=== PATIENT | female | born 1965 | race Caucasian/White ===

== ENCOUNTER 2016-10-05 10:08 | Outpatient (CLI) | payer BC | END 2016-10-05 10:09 | disposition home or self-care (01) | DX: M25.512 Pain in left shoulder (principal) ==

== ENCOUNTER 2017-06-08 08:00 | Outpatient (CLI) | payer BC ==
[2017-06-09 13:46] LABS: HEMOGLOBIN A1C 0.46 g/dL
[2017-06-09 13:56] LABS: THYROID STIMULATING HORMONE 4.87 uIU/mL (0.34-5.60)
== END 2017-06-08 08:01 | disposition home or self-care (01) ==
LOC: LAB.F 08:00
PROVIDERS: ATTEND Registered Nurse
DX: F31.31 Bipolar disorder, current episode depressed, mild (principal)
CPT/HCPCS: 36415; 83036; 84439; 84443; 84481

== ENCOUNTER 2017-06-11 10:16 | Outpatient (CLI) | payer BC ==
--- NOTE | 2017-06-16 13:28 | Mammography Report ---
DATE OF SERVICE: 06/11/2017 DIGITAL SCREENING MAMMOGRAM: 06/11/2017 CLINICAL INDICATION: A 51-year-old with history of late childbearing, history of bilateral reduction for screening. COMPARISON: 05/2015, 07/2013, 01/2012, 01/2011, 11/2009. TECHNIQUE: Routine CC and MLO projections were obtained of the breasts. FINDINGS: The breasts again demonstrate scattered fibroglandular densities bilaterally. Post-reduct ion changes are stable. Coarse and punctate, typically benign calcifications are present. No suspicious masses, clustered microcalcifications, or regions of architectural distortion are identified. IMPRESSION: Benign findings. RECOMMENDATIONS: Routine annual screening unless otherwise clinically indicated. BIRADS category 2 - Benign findings. STANDARD QUALIFYING STATEMENTS 1. This examination was reviewed with the aid of Computed-Aided Detection (CAD). 2. A negative or benign imaging report should not delay biopsy if clinically suspicious findings are present. Consider surgical consultation if warranted. More than 5% of cancers are not identified by imaging. 3. Dense breasts may obscure an underlying neoplasm. TD: 06/15/2017 19:36
== END 2017-06-11 10:17 | disposition home or self-care (01) ==
LOC: DI.S 10:16
PROVIDERS: ATTEND Physician Assistant
DX: Z12.39 Encounter for other screening for malignant neoplasm of breast (principal)
CPT/HCPCS: 77067

== ENCOUNTER 2017-07-13 14:35 | Outpatient (CLI) | payer OTHER ==
[2017-07-13 17:23] LABS: BASOPHILS # (AUTO) 0.1 10^3/uL (0.0-0.1); BASOPHILS % (AUTO) 1.1 %; EOSINOPHILS % (AUTO) 14.8 %; HGB - HEMOGLOBIN 13.8 g/dL (12.0-16.0); LYMPHOCYTES # (AUTO) 2.3 10^3/uL (1.5-3.5); LYMPHOCYTES % (AUTO) 33.3 %; MEAN CORPUSCULAR HEMOGLOBIN 31.6 pg (27.0-31.0); MEAN CORPUSCULAR HGB CONC 32.6 g/dL (32.0-36.0); MEAN CORPUSCULAR VOLUME 96.7 fL (81.0-99.0); MEAN PLATELET VOLUME 8.7 fL (7.9-10.8); MONOCYTES # (AUTO) 0.7 10^3/uL (0.0-1.0); MONOCYTES % (AUTO) 9.6 %; NEUTROPHILS # (AUTO) 2.8 10^3/uL (1.5-6.6); NEUTROPHILS % (AUTO) 41.2 %; PLT - PLATELET COUNT 310 10^3/uL (130-450); RED BLOOD COUNT 4.37 10^6/uL (4.20-5.40); WHITE BLOOD COUNT 6.8 x10^3/uL (4.8-10.8)
[2017-07-13 18:57] LABS: THYROID STIMULATING HORMONE 2.84 uIU/mL (0.34-5.60)
[2017-07-13 18:59] LABS: FREE T4 (FREE THYROXINE) 0.75 ng/dL (0.58-1.64)
[2017-07-13 19:00] LABS: FERRITIN 18.3 ng/mL (11.0-306.8)
== END 2017-07-13 14:36 | disposition home or self-care (01) ==
LOC: LAB.F 14:35
PROVIDERS: ATTEND Registered Nurse
DX: F31.31 Bipolar disorder, current episode depressed, mild (principal)
CPT/HCPCS: 36415; 82728; 84439; 84443; 84481; 85025; 86376; 86800

== ENCOUNTER 2017-09-23 08:00 | Outpatient (CLI) | payer OTHER | END 2017-09-23 08:01 | disposition home or self-care (01) | LOC: LAB.F 08:00 | PROVIDERS: ATTEND Registered Nurse | DX: F31.74 Bipolar disorder, in full remission, most recent episode manic (principal) | CPT/HCPCS: 36415; 84443 ==

== ENCOUNTER 2017-11-24 10:39 | Outpatient (CLI) | payer OTHER ==
[2017-11-24 18:22] LABS: CHOL/HDL RATIO 5.1 (<4.4); CHOLESTEROL 216 mg/dL; HDL CHOLESTEROL 42 mg/dL; LDL CHOLESTEROL,CALCULATED 151 mg/dL; LDL/HDL RATIO 3.6 (<4.4); VLDL CHOLESTEROL 23 mg/dL
== END 2017-11-24 10:40 | disposition home or self-care (01) ==
LOC: LAB.F 10:39
PROVIDERS: ATTEND Physician Assistant
DX: E78.5 Hyperlipidemia, unspecified (principal); F31.74 Bipolar disorder, in full remission, most recent episode manic
CPT/HCPCS: 36415; 80061; 81599; 82542; 83721; 84443

== ENCOUNTER 2018-04-05 14:52 | Outpatient (CLI) | payer OTHER | END 2018-04-05 14:53 | disposition home or self-care (01) | LOC: SC 14:52 | PROVIDERS: ATTEND Internal Medicine Pulmonary Disease | DX: G47.10 Hypersomnia, unspecified (principal); R41.89 Other symptoms and signs involving cognitive functions and awareness; R06.83 Snoring | CPT/HCPCS: 99203; 99212 ==

== ENCOUNTER 2018-05-27 20:39 | Outpatient (CLI) | payer OTHER | END 2018-05-27 20:40 | disposition home or self-care (01) | LOC: SC 20:39 | PROVIDERS: ATTEND Internal Medicine Pulmonary Disease | DX: R06.83 Snoring (principal); G47.10 Hypersomnia, unspecified | CPT/HCPCS: 95810 ==

== ENCOUNTER 2018-07-06 16:18 | Outpatient (CLI) | payer OTHER | END 2018-07-06 16:19 | disposition home or self-care (01) | LOC: SC 16:18 | PROVIDERS: ATTEND Nurse Practitioner Family | DX: R06.83 Snoring (principal); R53.83 Other fatigue; G47.00 Insomnia, unspecified | CPT/HCPCS: 99212; 99215 ==

== ENCOUNTER 2018-08-26 14:43 | Outpatient (CLI) | payer OTHER | END 2018-08-26 14:44 | disposition home or self-care (01) | LOC: LAB.F 14:43 | PROVIDERS: ATTEND Registered Nurse | DX: F31.75 Bipolar disorder, in partial remission, most recent episode depressed (principal) | CPT/HCPCS: 36415; 80178; 84443 ==

== ENCOUNTER 2020-09-15 12:37 | Outpatient (CLI) | payer OTHER ==
--- NOTE | 2020-09-17 11:40 | Mammography Report ---
BILATERAL DIGITAL SCREENING MAMMOGRAM 3D/2D: 09/15/2020 CLINICAL: Routine screening. Comparison is made to exams dated: 06/11/2017 mammogram, 06/05/2015 mammogram, 08/17/2013 mammogram, 02/17/2012 mammogram, 02/17/2011 mammogram, and 12/17/2009 mammogram - [facility]. Th ere are scattered fibroglandular elements in both breasts. No significant masses, calcifications, or other findings are seen in either breast. There has been no significant interval change. IMPRESSION: NEGATIVE There is no mammographic evidence of malignancy. A 1 year screening mammogram is recommended. This exam was interpreted at Station ID: [id number]. NOTE: For mammograms, a report in lay terms will be sent to the patient. Approximately 15% of breast malignancies will not be visualized mammographically. In the management of a palpable breast mass, a negative mammogram must not discourage biopsy of a clinically suspicious lesion. Electronically Signed By: Reese Atkinson M.D. ddp/penrad:09/16/2020 12:46:26 ACR BI-RADS Category 1: Negative 3341F PARENCHYMAL PATTERN: (A) - The breast(s) demonstrate(s) scattered fibroglandular densities. BI-RADS CATEGORY: (1) - 1 RECOMMENDATION: (ANNUAL) - Recommend routine annual screening mammography. [id number] 1 year screening LATERALITY: (B)
== END 2020-09-15 12:38 | disposition home or self-care (01) ==
LOC: DI.S 12:37
PROVIDERS: ATTEND Registered Nurse
DX: Z12.31 Encounter for screening mammogram for malignant neoplasm of breast (principal)

== ENCOUNTER 2021-04-02 09:34 | Outpatient (CLI) | payer OTHER ==
[2021-04-02 14:59] LABS: BASOPHILS # (AUTO) 0.1 10^3/uL (0.0-0.1); BASOPHILS % (AUTO) 1.7 %; EOSINOPHILS # (AUTO) 0.7 10^3/uL (0.0-0.7); EOSINOPHILS % (AUTO) 11.6 %; HCT - HEMATOCRIT 44.8 % (37.0-47.0); HGB - HEMOGLOBIN 14.5 g/dL (12.0-16.0); LYMPHOCYTES # (AUTO) 2.2 10^3/uL (1.5-3.5); LYMPHOCYTES % (AUTO) 36.9 %; MEAN CORPUSCULAR HEMOGLOBIN 31.5 pg (27.0-31.0); MEAN CORPUSCULAR HGB CONC 32.4 g/dL (32.0-36.0); MEAN CORPUSCULAR VOLUME 97.4 fL (81.0-99.0); MEAN PLATELET VOLUME 10.4 fL (7.9-10.8); MONOCYTES # (AUTO) 0.6 10^3/uL (0.0-1.0); MONOCYTES % (AUTO) 9.7 %; NEUTROPHILS # (AUTO) 2.3 10^3/uL (1.5-6.6); NEUTROPHILS % (AUTO) 39.9 %; PLT - PLATELET COUNT 306 10^3/uL (130-450); RED CELL DISTRIBUTION WIDTH 12.8 % (12.0-15.0); WHITE BLOOD COUNT 5.9 x10^3/uL (4.8-10.8)
[2021-04-02 15:41] LABS: ALBUMIN 4.4 g/dL (3.2-5.5); ALBUMIN/GLOBULIN RATIO 1.4 (1.0-2.2); ALKALINE PHOSPHATASE 69 IU/L (42-121); ALT ALANINE AMINOTRANSFERASE 22 IU/L (10-60); AST ASPARTATE AMINOTRANSFERASE 19 IU/L (10-42); BUN - BLOOD UREA NITROGEN 11 mg/dL (6-20); CALCIUM 9.6 mg/dL (8.5-10.3); CARBON DIOXIDE - CO2 26 mmol/L (21-32); CHLORIDE 103 mmol/L (101-111); CHOL/HDL RATIO 5.7 (<4.4); CHOLESTEROL 320 mg/dL; CREATININE 0.9 mg/dL (0.4-1.0); GFR - MDRD 65 (>89); GLUCOSE 103 mg/dL (70-100); HDL CHOLESTEROL 56 mg/dL; LDL CHOLESTEROL,CALCULATED 239 mg/dL; LDL/HDL RATIO 4.3 (<4.4); LITHIUM 0.69 mmol/L; POTASSIUM 4.4 mmol/L (3.5-5.0); SODIUM 137 mmol/L (135-145); TOTAL PROTEIN 7.5 g/dL (6.7-8.2); TRIGLYCERIDES 125 mg/dL; VLDL CHOLESTEROL 25 mg/dL
[2021-04-02 15:53] LABS: THYROID STIMULATING HORMONE 2.19 uIU/mL (0.34-5.60)
[2021-04-02 15:55] LABS: FREE T3 2.93 pg/mL (2.5-3.9); FREE T4 (FREE THYROXINE) 0.83 ng/dL (0.58-1.64)
[2021-04-02 20:22] LABS: ESTIMATED AVERAGE GLUCOSE 111 mg/dL (70-100); HEMOGLOBIN A1c% 5.5 % (4.27-6.07)
== END 2021-04-02 09:35 | disposition home or self-care (01) ==
LOC: LAB.S 09:34
PROVIDERS: ATTEND Registered Nurse
DX: F31.75 Bipolar disorder, in partial remission, most recent episode depressed (principal)
CPT/HCPCS: 36415; 80053; 80061; 80178; 83036; 83721; 84439; 84443; 84481; 85025

== ENCOUNTER 2021-05-29 08:00 | Outpatient (CLI) | payer OTHER ==
--- NOTE | 2021-05-29 16:43 | XRAY Report ---
PROCEDURE: Elbow 3 View RT INDICATIONS: CONTUSION OF RIGHT ELBOW TECHNIQUE: 3 views of the elbow were acquired. COMPARISON: None. FINDINGS: Bones: No fractures or dislocations. No suspicious bony lesions. Soft tissues: No elbow joint effusion. No suspicious soft tissue calcifications. IMPRESSION: 1. No fracture or dislocation. Reviewed by: Reese Atkinson MD on 05/29/2021 3:42 PM [facility] Approved by: Reese Atkinson MD on 05/29/2021 3:42 PM [facility] Station ID: [id number]
== END 2021-05-29 23:59 | disposition home or self-care (01) ==
LOC: DI.S 08:00
PROVIDERS: ATTEND Physician Assistant Medical
DX: S50.01XA Contusion of right elbow, initial encounter (principal)

== ENCOUNTER 2021-11-28 09:37 | Outpatient (CLI) | payer OTHER ==
[2021-11-28 16:29] LABS: CHOL/HDL RATIO 3.3 (<4.4); CHOLESTEROL 187 mg/dL; HDL CHOLESTEROL 56 mg/dL; LDL CHOLESTEROL,CALCULATED 107 mg/dL; LDL/HDL RATIO 1.9 (<4.4); TRIGLYCERIDES 119 mg/dL; VLDL CHOLESTEROL 24 mg/dL
[2021-11-28 17:38] LABS: THYROID STIMULATING HORMONE 0.52 uIU/mL (0.34-5.60)
[2021-11-28 17:40] LABS: FREE T3 2.67 pg/mL (2.5-3.9); FREE T4 (FREE THYROXINE) 0.82 ng/dL (0.58-1.64)
[2021-11-28 21:19] LABS: ESTIMATED AVERAGE GLUCOSE 117 mg/dL (70-100); HEMOGLOBIN A1c% 5.7 % (4.27-6.07)
== END 2021-11-28 09:38 | disposition home or self-care (01) ==
LOC: LAB.S 09:37
PROVIDERS: ATTEND Registered Nurse
DX: E78.5 Hyperlipidemia, unspecified (principal); F31.75 Bipolar disorder, in partial remission, most recent episode depressed
CPT/HCPCS: 36415; 80061; 83036; 83721; 84439; 84443; 84481

== ENCOUNTER 2021-12-17 07:57 | Outpatient (CLI) | payer OTHER ==
--- NOTE | 2021-12-18 08:59 | Mammography Report ---
BILATERAL DIGITAL SCREENING MAMMOGRAM 3D/2D WITH EXAGGERATED CC: 12/17/2021 CLINICAL: Routine screening.Family history of breast cancer. Comparison is made to exams dated: 07/05/2018 mammogram - [facility], 06/11/2017 mammogram, mammogram, 06/05/2015 mammogram, 08/17/2013 mammogram, and 02/17/2012 mammogram - [facility]. There are scattered fibroglandular elements in both breasts. There are benign calcifications in the left breast. No significant masses, calcifications, or other findings are seen in either breast. There has been no significant interval change. IMPRESSION: BENIGN There is no mammographic evidence of malignancy. A 1 year screening mammogram is recommended. Based on the Tyrer Cuzick model (a risk assessment model) the patients lifetime risk is 8.1% and her 10 year risk is 2.6%. According to the ACR, ACS, and NCCN guidelines, an annual breast MRI exam ankush g with mammogram is recommended if the patients lifetime risk is 20% or greater. This exam was interpreted at Station ID: [id number]. NOTE: For mammograms, a report in lay terms will be sent to the patient. Approximately 15% of breast malignancies will not be visualized mammographically. In the management of a palpable breast mass, a negative mammogram must not discourage biopsy of a clinically suspicious lesion. Electronically Signed By: Trung Guevara [email or web address]/penrad:12/17/2021 12:27:05 ACR BI-RADS Category 2: Benign Finding(s) 3342F PARENCHYMAL PATTERN: (A) - The breast(s) demonstrate(s) scattered fibroglandular densities. BI-RADS CATEGORY: (2) - 2 RECOMMENDATION: (ANNUAL) - Recommend routine annual screening mammography. [id number] 1 year screening LATERALITY: (B)
== END 2021-12-17 07:58 | disposition home or self-care (01) ==
LOC: DI.S 07:57
DX: Z12.31 Encounter for screening mammogram for malignant neoplasm of breast (principal); Z80.3 Family history of malignant neoplasm of breast

== ENCOUNTER 2022-02-17 12:30 | Outpatient (CLI) | payer OTHER ==
[2022-02-17 16:16] LABS: ALBUMIN 4.3 g/dL (3.2-5.5); ALBUMIN/GLOBULIN RATIO 1.6 (1.0-2.2); BILIRUBIN,TOTAL 0.8 mg/dL (0.2-1.0); CREATININE 0.8 mg/dL (0.4-1.0)
[2022-02-17 16:25] LABS: T4 (THYROXINE) 7.76 ug/dL (6.09-12.23)
[2022-02-17 16:28] LABS: THYROID STIMULATING HORMONE 0.08 uIU/mL (0.34-5.60)
[2022-02-17 16:29] LABS: CALCIUM 9.6 mg/dL (8.5-10.3); POTASSIUM 4.5 mmol/L (3.5-5.0)
[2022-02-17 16:30] LABS: FREE T3 3.56 pg/mL (2.5-3.9); FREE T4 (FREE THYROXINE) 1.05 ng/dL (0.58-1.64)
[2022-02-18 06:10] LABS: THYROID PEROXIDASE (TPO) AB 9 IU/mL (0-34)
== END 2022-02-17 12:31 | disposition home or self-care (01) ==
LOC: LAB.S 12:30
PROVIDERS: ATTEND Registered Nurse
DX: F31.75 Bipolar disorder, in partial remission, most recent episode depressed (principal)
CPT/HCPCS: 36415; 80053; 84436; 84439; 84443; 84480; 84481; 84482; 86376

== ENCOUNTER 2022-06-08 21:37 | Outpatient (CLI) | payer OTHER | END 2022-06-08 21:38 | disposition left against medical advice (07) | LOC: EMS 21:37 | DX: R00.2 Palpitations (principal); I10 Essential (primary) hypertension; R00.0 Tachycardia, unspecified ==